=== PATIENT | female | born 1965 | race Caucasian/White ===

== ENCOUNTER 2022-08-10 14:12 | Outpatient (CLI) | payer MEDICAID, SELFPAY ==
[2022-08-10 22:09] LABS: Chloride* 101 mmol/L (96-114); Potassium* 4.5 mmol/L (3.6-5.1); Sodium* 139 mmol/L (135-149)
[2022-08-10 22:13] LABS: HDL Cholesterol* 61 mg/dL (>=50)
[2022-08-10 22:36] LABS: Thyroid Stimulating Hormone* 0.499 uIU/mL (0.270-4.20)
[2022-08-10 22:38] LABS: Creatinine* 0.7 mg/dL (0.5-1.5); Estimated Glomerular Filt Rate 100 ml/min
[2022-08-10 22:39] LABS: Blood Urea Nitrogen* 16 mg/dL (7-30); Carbon Dioxide* 27 mmol/L (20-32)
[2022-08-10 23:30] LABS: Cholesterol* 371 mg/dL (90-199); LDL Cholesterol Calculated 260 mg/dL (<100)
[2022-08-11 00:02] LABS: Calcium* 9.1 mg/dL (8.4-10.6); Glucose* 93 mg/dL (60-115)
[2022-08-11 00:03] LABS: Triglycerides* 248 mg/dL (40-149)
== END 2022-08-10 14:13 | disposition home or self-care (01) ==
PROVIDERS: PCP Physician Assistant Medical; Visit Provider Physician Assistant Medical
DX: Z00.00 Encounter for general adult medical examination without abnormal findings (principal); I10 Essential (primary) hypertension; E78.49 Other hyperlipidemia; Z13.29 Encounter for screening for other suspected endocrine disorder
CPT/HCPCS: 80048; 80061; 84443

== ENCOUNTER 2023-01-18 19:37 | Outpatient (REF) | payer BC, SELFPAY ==
[2023-01-18 20:16] LABS: Cholesterol* 233 mg/dL (90-199)
[2023-01-18 20:17] LABS: HDL Cholesterol* 64 mg/dL (>=50); LDL Cholesterol Calculated 123 mg/dL (<100); Triglycerides* 232 mg/dL (40-149)
== END 2023-01-18 19:38 | disposition home or self-care (01) ==
LOC: NPINS 19:37
PROVIDERS: PCP Physician Assistant Medical; Visit Provider Physician Assistant Medical
DX: E78.5 Hyperlipidemia, unspecified (principal)
CPT/HCPCS: 80061

== ENCOUNTER 2023-04-20 17:04 | Outpatient (CLI) | payer BC, SELFPAY ==
--- NOTE | 2023-04-20 17:15 | CRLHL7_ITS ---
For Patients: As a result of the Century Cures Act, medical imaging exams and procedure reports are released immediately into your electronic medical record. You may view this report before your referring provider. If you have questions, please contact your health care provider. BILATERAL SCREENING MAMMOGRAM WITH COMPUTER-AIDED DETECTION AND TOMOSYNTHESIS TECHNIQUE: CC and MLO views were obtained. These mammographic images have been obtained using full-field digital technique. These mammographic images were interpreted with the benefit of computer-aided detection. Breast tomosynthesis was used in this interpretation. COMPARISON FILM: 02/04/22, 09/02/20, 11/12/15. FINDINGS: The breasts are heterogeneously dense, which may obscure small masses. IMPRESSION: There is no radiographic evidence for malignancy. ASSESSMENT: BI-RADS Category 1: Negative RECOMMENDATION: Routine screening mammogram in 1 year. A lay language report of this examination will be provided to the patient. ADALBERTO HASSAN M.D. Diagnostic Radiologist [email or web address] Transcribed: 04/27/2023, 6:[address]/Dictated by: Adalberto Hassan MD @ 04/27/2023 12:43:00 PM (Electronically Signed)
== END 2023-04-20 17:05 | disposition home or self-care (01) ==
LOC: MAMMO 17:05
PROVIDERS: PCP Physician Assistant Medical; Visit Provider Physician Assistant Medical
DX: Z12.31 Encounter for screening mammogram for malignant neoplasm of breast (principal); R92.2 Inconclusive mammogram
CPT/HCPCS: 77063; 77067

== ENCOUNTER 2023-11-23 14:51 | Outpatient (CLI) | payer BC, SELFPAY | END 2023-11-23 14:52 | disposition home or self-care (01) | LOC: NFLDREF 11-24 05:50 | PROVIDERS: PCP Physician Assistant Medical; Referring Provider Physician Assistant Medical | DX: E78.2 Mixed hyperlipidemia (principal) | CPT/HCPCS: 99001 ==

== ENCOUNTER 2024-03-08 13:10 | Outpatient (CLI) | payer BC, SELFPAY ==
[2024-03-08 22:59] LABS: Chlamydia DNA Amplified* NOT DETECTED (No Detected); GC DNA Amplified* NOT DETECTED (No Detected)
== END 2024-03-08 13:11 | disposition home or self-care (01) ==
PROVIDERS: PCP Physician Assistant Medical; Visit Provider Physician Assistant Medical
DX: E78.49 Other hyperlipidemia (principal); I10 Essential (primary) hypertension; Z11.3 Encounter for screening for infections with a predominantly sexual mode of transmission
CPT/HCPCS: 80053; 80061; 83695; 86703; 86803; 87491; 87591

== ENCOUNTER 2024-03-27 08:31 | Outpatient (CLI) | payer BC, SELFPAY ==
--- NOTE | 2024-03-27 08:45 | CRLHL7_ITS ---
For Patients: As a result of the Century Cures Act, medical imaging exams and procedure reports are released immediately into your electronic medical record. You may view this report before your referring provider. If you have questions, please contact your health care provider. INDICATION: Pain left leg TECHNIQUE: A compression venous ultrasound exam was performed of the left lower extremity using martell-scale imaging, color Doppler and spectral Doppler analysis. FINDINGS: Sonographic imaging of the left lower extremity demonstrates normal compressibility and color Doppler venous blood flow within the common femoral vein, deep femoral vein, and the proximal greater saphenous vein. Within the thigh, the femoral vein is patent and compressible. At a lower level, the popliteal and posterior tibial veins also show normal compressibility and color Doppler venous blood flow. Limited imaging of the contralateral groin demonstrates a normal spectral waveform and color Doppler venous blood flow within the right common femoral vein. No evidence of popliteal cyst IMPRESSION: Normal venous ultrasound exam. No evidence of deep vein thrombosis within the left lower extremity. Dictated by Stacey Bai MD @ 03/27/2024 1:38:45 PM (Electronically Signed)
== END 2024-03-27 08:32 | disposition home or self-care (01) ==
LOC: US 08:31
PROVIDERS: PCP Physician Assistant Medical; Visit Provider Physician Assistant Medical
DX: M25.562 Pain in left knee (principal)
CPT/HCPCS: 93971

== ENCOUNTER 2024-04-03 14:28 | Outpatient (CLI) | payer BC, SELFPAY ==
--- NOTE | 2024-04-03 15:00 | CRLHL7_ITS ---
For Patients: As a result of the Century Cures Act, medical imaging exams and procedure reports are released immediately into your electronic medical record. You may view this report before your referring provider. If you have questions, please contact your health care provider. Examination: US abdominal aorta Indication: Family history of ischemic heart disease. Abdominal aortic aneurysm screening. Technique: Frye scale and color Doppler images of the aorta and common iliac arteries are obtained. Comparison: None Findings: Proximal aorta: 2.3 x 2.5 cm Mid aorta: 1.4 x 1.4 cm Distal aorta: 1.4 x 1.4 cm Right common iliac artery: 0.9 x 0.9 cm Left common iliac artery: 1.0 x 1.0 cm Impression: No abdominal aortic aneurysm. Dictated by Adalberto Pino MD @ 04/03/2024 3:34:50 PM (Electronically Signed)
== END 2024-04-03 14:29 | disposition home or self-care (01) ==
PROVIDERS: PCP Physician Assistant Medical; Visit Provider Physician Assistant Medical
DX: Z13.6 Encounter for screening for cardiovascular disorders (principal); Z82.49 Family history of ischemic heart disease and other diseases of the circulatory system
CPT/HCPCS: 76706

== ENCOUNTER 2024-04-21 14:54 | Outpatient (CLI) | payer BC, SELFPAY ==
--- NOTE | 2024-04-21 15:20 | CRLHL7_ITS ---
For Patients: As a result of the Century Cures Act, medical imaging exams and procedure reports are released immediately into your electronic medical record. You may view this report before your referring provider. If you have questions, please contact your health care provider. BILATERAL SCREENING MAMMOGRAM WITH COMPUTER-AIDED DETECTION AND TOMOSYNTHESIS TECHNIQUE: CC and MLO views were obtained. These mammographic images have been obtained using full-field digital technique. These mammographic images were interpreted with the benefit of computer-aided detection. Breast Tomosynthesis was used in this interpretation. COMPARISON FILM: 04/20/23, 02/04/22, 09/02/20. FINDINGS: There are scattered areas of fibroglandular density. IMPRESSION: There is no radiographic evidence for malignancy. ASSESSMENT: BI-RADS Category 2: Benign RECOMMENDATION: Routine screening mammogram in 1 year. A lay language report of this examination will be provided to the patient. Adablerto Pino M.D. Diagnostic Radiologist [email or web address] SP/Dictated by: Adalberto Pino MD @ 04/24/2024 10:10:00 AM (Electronically Signed)
== END 2024-04-21 14:55 | disposition home or self-care (01) ==
LOC: MAMMO 14:55
PROVIDERS: PCP Physician Assistant Medical; Visit Provider Physician Assistant Medical
DX: Z12.31 Encounter for screening mammogram for malignant neoplasm of breast (principal)
CPT/HCPCS: 77063; 77067

== ENCOUNTER 2024-07-11 13:32 | Outpatient (CLI) | payer BC, SELFPAY | END 2024-07-11 13:33 | disposition home or self-care (01) | LOC: NFLDREF 07-14 11:22 | PROVIDERS: PCP Physician Assistant Medical; Referring Provider Physician Assistant Medical | DX: Z53.29 Procedure and treatment not carried out because of patient's decision for other reasons (principal) ==

== ENCOUNTER 2024-09-28 14:25 | Outpatient (CLI) | payer BC, SELFPAY | END 2024-09-28 14:26 | disposition home or self-care (01) | LOC: NFLDREF 10-02 06:25 | PROVIDERS: PCP Physician Assistant Medical; Referring Provider Physician Assistant Medical; Visit Provider Physician Assistant Medical | DX: E03.9 Hypothyroidism, unspecified (principal); Z78.0 Asymptomatic menopausal state | CPT/HCPCS: 82670; 83001; 84144; 84403; 84443 ==

== ENCOUNTER 2025-05-23 16:43 | Outpatient (CLI) | payer BC, SELFPAY | END 2025-05-23 16:44 | disposition home or self-care (01) | LOC: NFLDREF 05-28 19:29 | PROVIDERS: PCP Physician Assistant Medical; Referring Provider Physician Assistant Medical; Visit Provider Physician Assistant Medical | DX: I10 Essential (primary) hypertension (principal); M85.80 Other specified disorders of bone density and structure, unspecified site; E78.49 Other hyperlipidemia | CPT/HCPCS: 80053; 80061 ==

== ENCOUNTER 2025-06-13 14:34 | Outpatient (CLI) | payer BC, SELFPAY ==
--- NOTE | 2025-06-13 15:00 | CRLHL7_ITS ---
For Patients: As a result of the Century Cures Act, medical imaging exams and procedure reports are released immediately into your electronic medical record. You may view this report before your referring provider. If you have questions, please contact your health care provider. XR DXA Bone Mineral Density (BMD) Reason for exam: Osteopenia. Current height (inches): 62.0 Weight (lbs.): 130.0 Menopause age: 56 Ethnicity: White 1. Have you had a previous hip or vertebral fracture? No. 2. Have you had any fractures during your adult life which did not result from significant trauma (e.g., auto accident)? No. 3. Did either of your parents have a hip fracture? No. 4. Do you smoke? No. 5. Have you ever taken Glucocorticoids? No. 6. Do you have rheumatoid arthritis? No. 7. Do you have secondary osteoporosis? No. 8. Do you drink 3 or more alcoholic drinks per day? No. 9. Are you being treated for osteoporosis? No. 10. Have you ever taken any of the following medications: Actonel, Evista, Fosamax, Miacalcin, Reclast, Boniva, Forteo, HRT (i.e., estrogen/hormone therapy), Protelos, Prolia, Vitamin D, Calcium, other ??? please specify. ANSWER: Yes; vitamin D, calcium and hormone replacement therapy. 11. Do you have any of the following medical conditions: Anorexia or bulimia, asthma or emphysema, end stage renal disease, hyperparathyroidism, any seizure disorders, cancer, inflammatory bowel diseases, hysterectomy, other ??? please specify. ANSWER: No. 12. What was your maximum height (inches)? 62. 13. Do you perform weightbearing exercise regularly? No. 14. Do you regularly consume dairy products? Yes. 15. Do you drink caffeinated beverages? Yes. 16. At what age did your period start? 11. 17. Are you premenopausal? No. 18. How many full-term pregnancies have you had? 2. 19. Have you ever missed your period for more than 6 months in a row (not including or menopause)? No. TECHNIQUE: Bone mineral density study was performed using the [employer]. FINDINGS: The results of the study expressed as bone mineral density (BMD) are as follows: Lumbar Spine L1 to L4: BMD: 1.095 g/cm2. T-score: 0.4. Z-score: 2.0. Neck Left: BMD: 0.740 g/cm2. T-score: -1.0. Z-score: 0.4. Right: BMD: 0.692 g/cm2. T-score: -1.4. Z-score: 0.0. Total Left: BMD: 0.871 g/cm2. T-score: -0.6. Z-score: 0.5. Right: BMD: 0.887 g/cm2. T-score: -0.4. Z-score: 0.6. IMPRESSION: Osteopenia. FRAX 10-year Fracture Risk Major Osteoporotic Fracture: 8.1% Hip Fracture: 0.7% Reported Risk Factors: [place] () Neck BMD = 0.692, BMI = 23.8. ADALBERTO HASSAN M.D. Diagnostic Radiologist [email or web address] Transcribed: 5:[address]/Dictated by: Adalberto Hassan MD @ 06/13/2025 3:55:00 PM (Electronically Signed)
== END 2025-06-13 14:35 | disposition home or self-care (01) ==
LOC: RAD 14:34
PROVIDERS: PCP Physician Assistant Medical; Visit Provider Physician Assistant Medical
DX: Z13.820 Encounter for screening for osteoporosis (principal); M85.89 Other specified disorders of bone density and structure, multiple sites; Z78.0 Asymptomatic menopausal state
CPT/HCPCS: 77080

== ENCOUNTER 2025-09-20 14:43 | Outpatient (CLI) | payer BC, SELFPAY ==
--- NOTE | 2025-09-20 15:20 | CRLHL7_ITS ---
For Patients: As a result of the Century Cures Act, medical imaging exams and procedure reports are released immediately into your electronic medical record. You may view this report before your referring provider. If you have questions, please contact your health care provider. INDICATION: BILATERAL SCREENING MAMMOGRAM, ASYMPTOMATIC 60 Y/O FEMALE COMPARISON: 04/21/2024, 04/20/2023, 02/06/2022 TECHNIQUE: Digital mammogram in CC and MLO projections including computer-aided detection (CAD) and tomosynthesis. BREAST COMPOSITION: There are scattered areas of fibroglandular density. FINDINGS: No suspicious findings. ASSESSMENT: BI-RADS 1 Negative RECOMMENDATION: Annual screening mammogram. A lay language report of this examination will be provided to the patient. Dictated by: Adalberto Pino MD @ 09/21/2025 08:49:55 (Electronically Signed)
== END 2025-09-20 14:44 | disposition home or self-care (01) ==
LOC: MAMMO 14:44
PROVIDERS: PCP Physician Assistant Medical; Visit Provider Physician Assistant Medical
DX: Z12.31 Encounter for screening mammogram for malignant neoplasm of breast (principal)
CPT/HCPCS: 77063; 77067